=== PATIENT | male | born 1970 | race Caucasian/White ===

== ENCOUNTER 2024-11-18 11:56 | Emergency (ER) | payer BC ==
[2024-11-18 12:39] LABS: BASOPHILS ABSOLUTE AUTO 0.06 K/uL (0.02-0.10); BASOPHILS PERCENT AUTO 0.6 % (0.0-0.5); EOSINOPHILS ABSOLUTE AUTO 0.31 K/uL (0.04-0.40); EOSINOPHILS PERCENT AUTO 3.2 % (1.0-5.0); LYMPHOCYTES ABSOLUTE AUTO 1.96 K/uL (1.50-4.00); LYMPHOCYTES PERCENT AUTO 20.2 % (20.0-40.0); MEAN PLATELET VOLUME 10.2 fL (6.0-10.0); MONOCYTES ABSOLUTE AUTO 0.94 K/uL (0.20-0.80); MONOCYTES PERCENT AUTO 9.7 % (3.0-10.0); NEUTROPHILS ABSOLUTE AUTO 6.45 K/uL (2.00-7.50); NEUTROPHILS PERCENT AUTO 66.3 % (45.0-70.0); PLATELET COUNT,PLT 209 K/uL (150-400); RED BLOOD CELL COUNT 5.23 M/uL (4.50-6.50); RED CELL DISTRIBUTION WIDTH 13.5 % (11.0-16.0); WHITE BLOOD CELL COUNT,WBC 9.7 K/uL (4.0-11.0)
[2024-11-18 12:59] LABS: A/G RATIO 1.2 (0.8-2.0); ALANINE AMINOTRANSFERASE,ALT 31 U/L (12-78); ASPARTATE AMNIOTRANSFERASE,AST 16 U/L (15-37); BILIRUBIN TOTAL 1.1 mg/dL (0.0-1.0); BLOOD UREA NITROGEN,BUN 14 mg/dL (8-26); CARBON DIOXIDE,CO2 28.1 mmol/L (21.0-32.0); CHLORIDE,CL 103 mmol/L (98-107); CREATININE 0.70 mg/dL (0.70-1.30); ESTIMATED GFR 110 mL/min (>60); GLUCOSE RANDOM 92 mg/dL (74-100); POTASSIUM,K 4.0 mmol/L (3.5-5.1); PROTEIN TOTAL,TP 6.7 g/dL (6.4-8.2); SODIUM,NA 138 mmol/L (136-145)
[2024-11-18 13:26] LABS: INR 1.1 (1.0-3.5)
[2024-11-18 13:53] LABS: APPEARANCE,URINE CLEAR (CLEAR); GLUCOSE,URINE NEGATIVE (NEGATIVE); OCCULT BLOOD,URINE NEGATIVE (NEGATIVE)
== END 2024-11-18 15:30 | disposition left against medical advice (07) ==
LOC: LB.ED 11:56
DX: I63.9 Cerebral infarction, unspecified (principal); Z79.82 Long term (current) use of aspirin; Z79.899 Other long term (current) drug therapy
CPT/HCPCS: 36415; 70450; 80053; 81003; 85025; 85610; 99285; A9270